=== PATIENT | female | born 1980 | race Caucasian/White ===

== ENCOUNTER → 2023-11-05 12:26 | Outpatient (REF) | payer OTHER, SELFPAY | LOC: WDC 12:26 | PROVIDERS: ATTENDING PHYSICIAN Family Medicine | DX: Z12.31 Encounter for screening mammogram for malignant neoplasm of breast (principal) | CPT/HCPCS: 77063; 77067 ==

== ENCOUNTER 2024-01-25 00:02 | Emergency (ER) | payer OTHER, SELFPAY ==
[2024-01-25 00:06] VITALS: BP 124/70
[2024-01-25 01:07] VITALS: BMI 31.5
[2024-01-25 01:42] LABS: % Basophils 0.3 % (0-2); % Eosinophils 0.1 % (0-6); % Immature Granulocytes 0.1 % (0-0.5); % Lymphocytes 18.7 % (20.5-51.1); % Monocytes 8.8 % (1.7-9.3); Absolute Lymphocytes 1.7 10^3/uL (1.2-3.4); Absolute Monocytes 0.8 10^3/uL (0.1-0.6); Absolute Neutrophils 6.7 10^3/uL (1.4-6.5); Hematocrit 31.2 % (37.0-47.0); Hemoglobin 10.2 g/dL (12.0-16.0); Mean Corp Hgb Conc. 32.7 g/dL (33.0-37.0); Mean Corpuscular Hgb 25.7 pg (27.0-31.0); Mean Corpuscular Volume 78.6 fL (81.0-99.0); Nucleated Red Blood Cells % 0 %; Platelet Count 283 10^3/uL (130-400); Red Blood Cell Count 3.97 10^6/uL (4.20-5.40); Red Cell Dist. Width 15.2 % (11.5-14.5); White Blood Cell Count 9.3 10^3/uL (4.8-10.8)
[2024-01-25 01:54] LABS: HCG, Serum Qualitative Screen Negative
[2024-01-25 01:55] LABS: Lactic Acid 1.6 mmol/L (0.7-2.0)
[2024-01-25 01:58] LABS: ALT (SGPT) 18 U/L (0-35); AST (SGOT) 37 U/L (14-36); Albumin 4.1 g/dl (3.5-5.0); Alkaline Phosphatase 47 U/L (38-126); Blood Urea Nitrogen 14 mg/dl (7-17); Carbon Dioxide 25 mmol/L (22-30); Chloride 104 mmol/L (98-107); Estimated Creatinine Clearance > 125 ml/min; Glucose 117 mg/dl (70-99); Lipase 182 U/L (23-300); Sodium 137 mmol/L (135-145); Total Bilirubin 0.8 mg/dl (0.2-1.3); Total Protein 6.9 g/dl (6.3-8.2); eGFR > 60.00
[2024-01-25] MEDS: OMNIPAQUE 50 ML PO (02:03)
--- NOTE | 2024-01-25 03:25 | ED.GENMED ---
History of Present Illness
General
Chief Complaint: Abdominal Pain
Source: patient
Time Seen by Provider: 01/25/24 03:11
Travel History
Have you had any contact with someone who has COVID-19?: No
Do you have any symptoms of coronavirus? Fever > 100 degrees, chills, cough, shortness of breath, sore throat, loss of taste or smell, muscle aches, or headache?: No
History of Present Illness
History of Present Illness:
43-year-old female presents to the emergency department after signing out AGAINST MEDICAL ADVICE at [facility] in [place]. She states that she showed up there today around 3 PM with severe abdominal pain. She reports eating a large [place]
meal. She stated that she had mid abdominal pain shortly after eating. She went to [facility] and had a full workup including CAT scan. She was told that she had a small bowel obstruction and possible twisting of her bowel. They attempted
to put an NG tube in but patient stated that she refused it. She decided she wanted a second opinion at [facility] so she got into her car and drove here. Upon arrival she stated that her symptoms had resolved. Patient has a history of
gastric bypass which was done in 2005 at [facility]. Patient states that she has had similar symptoms in the past with no obvious diagnosis found.
Past History
Past History
ED Past Medical History: GERD, Hypercholesterolemia and Other (Known history of cholelithiasis, PCOS, hypoglycemia)
ED Past Surgical History: Gynecological (Uterine Polypectomy) and Other (Gastric bypass surgery)
Social History
Tobacco: Non-smoker
Alcohol: None
Drug: None
Personal:
Living: with family
Employment: Employed
Family History
Family History: Negative Diabetes, Hypertension, Early CAD, Asthma or Cancer
Review of Systems
Review of Systems
Allergies reviewed?: Yes
All Other Systems: ROS reviewed and negative except as documented in HPI and ROS
Constitutional: Reports no symptoms
EENT: Reports no symptoms
Respiratory: Reports no symptoms
Cardiac: Reports no symptoms
ABD/GI: Reports abdominal pain and nausea
: Reports no symptoms
Musculoskeletal: Reports no symptoms
Skin: Reports no symptoms
Neurological: Reports no symptoms
Endocrine: Reports no symptoms
Hematologic/Lymphatic: Reports no symptoms
Psychiatric: Reports anxiety
Phy Exam
General Physical Exam
General Presentation: well appearing and no apparent distress
General Skin: warm and dry
General Habitus: normal
General Mental: alert
General Hydration: appears well hydrated
ENT Exam
ENT Exam: EOMI, pharynx normal, neck supple and normocephalic
Eye Exam
Eye Exam: PERRL, cornea clear and conjunctiva normal
Cardiovascular Exam
Cardiovascular Exam: regular rate/rhythm, no edema, no murmur and normal peripheral pulses
Pulmonary Exam
Pulmonary Exam: lungs clear, no respiratory distress, no rales, no crackles, no rhonchi, no stridor, no wheezing and no cough
Gastrointestinal Exam
Gastrointestinal Exam: normal bowel sounds, non tender, soft, no organomegaly, no pulsatile mass and non distended
Palpation: generalized: No tenderness
Neurological Exam
Neurological Exam: alert, oriented x3, no motor deficits and speech normal
Musculoskeletal Exam
Musculoskeletal Exam: full ROM and no edema
Skin Exam
Skin Exam: normal color, warm/dry, no rash and no petechia
Psychiatric Exam
Psychiatric Exam: normal mood/affect
Course
Orders/Labs/Results
Orders:
Orders
01/25/24 01:04
IV Insert/Care/Rem.- Treatment PRN
01/25/24 01:08
Test Result ONCE
01/25/24 01:33
Complete Blood Count/With Diff Urgent
Comprehensive Metabolic Panel Urgent
HCG, Serum Qualitative Screen Urgent
Lactate Level [Lactic Acid] Urgent
Lipase Urgent
01/25/24 01:37
CT Abd/pel W Iv And Oral Contr Urgent
Comment:
Reason For Exam: probable bowel obstruction (dxfrom OSH)
Iohexol [Omnipaque] See Protocol PO NOW STA
Abnormal Lab Results
01/25/24
01:33
RBC 3.97 L 10^6/uL
(4.20-5.40)
Hgb 10.2 L g/dL
(12.0-16.0)
Hct 31.2 L %
(37.0-47.0)
MCV 78.6 L fL
(81.0-99.0)
MCH 25.7 L pg
(27.0-31.0)
MCHC 32.7 L g/dL
(33.0-37.0)
RDW 15.2 H %
(11.5-14.5)
Absolute Neuts (auto) 6.7 H 10^3/uL
(1.4-6.5)
Absolute Monos (auto) 0.8 H 10^3/uL
(0.1-0.6)
Lymphocytes % 18.7 L %
(20.5-51.1)
Glucose 117 H mg/dl
(70-99)
AST 37 H U/L
(14-36)
01/25/24 01:33
01/25/24 01:33
Vital Signs
Initial and Last Documented VS:
Initial Vital Signs
Temp Pulse Resp BP Pulse Ox
98.4 F 60 24 124/70 96
01/25/24 00:06 01/25/24 00:06 01/25/24 00:06 01/25/24 00:06 01/25/24 00:06
Last Documented Vital Signs
Temp Pulse Resp BP Pulse Ox
98.4 F 62 18 98/46 98
01/25/24 00:06 01/25/24 05:22 01/25/24 05:22 01/25/24 05:22 01/25/24 05:22
*Critical Care Note
Total Time (30-74mins, 75-104mins- exclusive of procedures): Not Applicable
Update Note
Update Note:
IMPRESSION:
Small bowel obstruction has resolved; oral contrast extends to the descending colon.
Prior gastric bypass
No abscess or free gas
No diverticulitis or appendicitis
No bulky adnexal lesions
Small sludge, stones or contrast in the gallbladder; no cholecystitis or duct dilatation
Normal-appearing pancreas
No obstructive uropathy
Indeterminate 2.7 cm lesion in the right hepatic lobe (). Stable dating back to 11/02/2022. If not previously assessed consider nonemergent follow-up liver protocol MRI.
Partially imaged groundglass micronodule in the right lung base measuring 5 mm.
01/25/2024 0527 AM: Patient given a copy of her preliminary CT scan report. She is in no pain. She has no complaints. On repeat physical exam she has no pain to deep or superficial palpation. Good bowel sounds are heard. Patient to be discharged
home. She is in no acute distress at this time.
ED Attending Note
-
Portions of this chart may have been created with voice recognition software.� Occasional wrong word or��sound alike� substitutions may have occurred due to the inherent limitations of voice recognition software.
Discharge Plan
Departure
Patient Disposition: Home (Routine Discharge)
Date of Disposition: 01/25/24
Time of Disposition: :
Patient with high blood pressure during this ER visit?: Yes
Condition: Good
Discharge Problem:
Small bowel obstruction resolved
Instructions: Small Bowel Obstruction (DC), Abdominal Pain, BLOOD PRESSURE
Prescriptions:
No Action
ondansetron HCl 4 mg tablet
4 mg PO DAILY PRN (Reason: nausea and vomiting) 4 Days Qty: 7 0RF
Referrals:
Raúl Gomez, [Family Provider] -
Raul Ballesteros MD [Active] - As needed
Activity Restrictions/Additional Instructions:
It was a pleasure meeting you and taking part in your care. We hope for your continued healing and wellness.
Please read discharge instructions in their entirety. However, they are for general education and may not describe your exact diagnosis at discharge. Information on your ER visit and medical conditions were discussed with you along with appropriate
follow up information...
If indicated, please take your medications as instructed and indicated on discharge paperwork.
Please schedule a follow up appointment as directed. Call to schedule an appointment
Please return to the emergency department with ANY change in, persisting, or worsening of symptoms. If any of your symptoms do not improve, or persist, or become more severe within 6-12 hours, please return to the emergency department for further
care.
Please return to the emergency department if you develop a headache, neck pain/stiffness, fever greater than 100.4F, chest pain, shortness of breath, persistent nausea, vomiting, slurred speech, difficulty walking, numbness/tingling, weakness, signs
of infection or any other symptoms that are worrisome to you.
If you have any questions or concerns please do not hesitate to call the Hospital at or E-mail me directly at [email or web address]
Interventions
Interventions:
*Risk Screen - Suicide Last Done: 01/25/24 00:06
*General Assessment Last Done: 01/25/24 02:15
*Neglect/Abuse Screening Last Done: 01/25/24 00:06
ED- Fall Risk Assessment Last Done: 01/25/24 05:40
*ED COVID-19 Vaccine History Last Done: 01/25/24 02:16
*Nursing Disposition Last Done: 01/25/24 05:40
[facility]-Ybtqhyx[facility] Assessment Last Done: 01/25/24 02:16
Discharge Date and Time
Discharge Date/Time: 01/25/24 06:01
Print Language: SETSWANA
[2024-01-25 05:22] VITALS: BP 98/46
== END 2024-01-25 06:01 | disposition home or self-care (01) ==
LOC: EMR 00:02
PROVIDERS: EMERGENCY PHYSICIAN Student in an Organized Health Care Education/Training Program; FAMILY PHYSICIAN Family Medicine
DX: K56.609 Unspecified intestinal obstruction, unspecified as to partial versus complete obstruction (principal); R11.0 Nausea; R03.0 Elevated blood-pressure reading, without diagnosis of hypertension; K21.9 Gastro-esophageal reflux disease without esophagitis; E78.00 Pure hypercholesterolemia, unspecified; Z98.84 Bariatric surgery status; Z88.0 Allergy status to penicillin; Z91.048 Other nonmedicinal substance allergy status
CPT/HCPCS: 99285; 74177; 80053; 83605; 83690; 84703; 85025; Q9967

== ENCOUNTER → 2024-06-13 09:31 | Outpatient (REF) | payer OTHER, SELFPAY | LOC: RAD 09:31 | PROVIDERS: ATTENDING PHYSICIAN Obstetrics & Gynecology Gynecology; FAMILY PHYSICIAN Family Medicine | DX: R10.2 Pelvic and perineal pain (principal) | CPT/HCPCS: 76830; 76856 ==

== ENCOUNTER 2024-10-30 18:29 | Emergency (ER) | payer OTHER, SELFPAY ==
[2024-10-30 18:40] VITALS: BP 108/73
--- NOTE | 2024-10-30 20:55 | ED.GENMED ---
History of Present Illness
General
Chief Complaint: Fall
Source: patient
Exam Limitations: none
Time Seen by Provider: 10/30/24 19:37
Nursing documentation reviewed up to this point in time: agreed with
History of Present Illness
History of Present Illness:
Patient states she was working on steps and fell. Fell down 3 steps. No LOC> Has tiny laceration to llateral aspect of right eyebow. Injury occured just [employer] DIRECT[employer]> Brought to ED by spouse for eval.
Past History
Past History
ED Past Medical History: GERD, Hypercholesterolemia and Other (Known history of cholelithiasis, PCOS, hypoglycemia)
ED Past Surgical History: Gynecological (Uterine Polypectomy) and Other (Gastric bypass surgery)
Social History
Tobacco: Non-smoker
Alcohol: None
Drug: None
Personal:
Living: with family
Employment: Employed
Family History
Family History: Negative Diabetes, Hypertension, Early CAD, Asthma or Cancer
Review of Systems
Review of Systems
Allergies reviewed?: Yes
All Other Systems: ROS reviewed and negative except as documented in HPI and ROS
Constitutional: Reports no symptoms
EENT: Reports no symptoms
Respiratory: Reports no symptoms
Cardiac: Reports no symptoms
ABD/GI: Reports no symptoms
: Reports no symptoms
Musculoskeletal: Reports no symptoms
Skin: Reports other (tiny laceration to lateral aspect of right eyebrow.)
Neurological: Reports dizzy and headache
Psychiatric: Reports no symptoms
Phy Exam
General Physical Exam
General Presentation: well appearing and no apparent distress
General age: appears stated age
General Skin: warm and dry
General Habitus: normal
Eye Exam
Eye Exam: PERRL, EOMI, conjunctiva normal and globe normal
Neurological Exam
Neurological Exam: alert, oriented x3, CN II-XII intact, no motor deficits, no sensory deficits, speech normal and normal gait
Victor[place] Coma Scale
Eye Opening: Spontaneous
Verbal Response: Oriented
Motor Response: Obeys Commands
GCS Total Score: 15
Musculoskeletal Exam
Musculoskeletal Exam: full ROM and neuro vasc intact
Skin Exam
Skin Exam: normal color, warm/dry and no rash
Psychiatric Exam
Psychiatric Exam: normal mood/affect
Course
Orders/Labs/Results
Orders:
Orders
10/30/24 18:35
CT Head W/o Iv Contrast Urgent
Comment:
Reason For Exam: fall with head strike
Vital Signs
Initial and Last Documented VS:
Initial Vital Signs
Temp Pulse Resp BP Pulse Ox
98.6 F 86 16 108/73 97
10/30/24 18:40 10/30/24 18:40 10/30/24 18:40 10/30/24 18:40 10/30/24 18:40
Last Documented Vital Signs
Temp Pulse Resp BP Pulse Ox
98.6 F 86 16 108/73 97
10/30/24 18:40 10/30/24 18:40 10/30/24 18:40 10/30/24 18:40 10/30/24 18:40
*Radiology
Radiology exam reviewed: radiology read reviewed
*Pulse Oximetry
Patient hypoxic: no
*Critical Care Note
Total Time (30-74mins, 75-104mins- exclusive of procedures): Not Applicable
Update Note
Update Note:
Patient declined closure of right eyebrow wound. Risk/benefits of laceration repair vs secondary intention. Given instructions on s/s infection, daily wound care, s/s to return to ED and she is agreeable to plan
ED Attending Note
-
Portions of this chart may have been created with voice recognition software.� Occasional wrong word or��sound alike� substitutions may have occurred due to the inherent limitations of voice recognition software.
Discharge Plan
Departure
Patient Disposition: Home (Routine Discharge)
Date of Disposition: 10/30/24
Time of Disposition: 20:54
Patient with high blood pressure during this ER visit?: No
Condition: Good
Covid-19: Not Applicable
Discharge Problem:
Head injury
Instructions: Concussion, Adult (DC), Head Injury in Adults (DC), Contusion (DC)
Prescriptions:
No Action
ondansetron HCl 4 mg tablet
4 mg PO DAILY PRN (Reason: nausea and vomiting) 4 Days Qty: 7 0RF
Referrals:
Filiberto David MD [Family Provider] - Follow up in 2-3 days
Interventions
Interventions:
*Risk Screen - Suicide Last Done: 10/30/24 18:40
*General Assessment Last Done: 10/30/24 18:40
*Neglect/Abuse Screening Last Done: 10/30/24 18:40
*ED COVID-19 Vaccine History Last Done: 10/30/24 18:40
*Nursing Disposition Last Done: 10/30/24 20:56
ED- Neurological Assessment Last Done: 10/30/24 20:53
ED-Skin Assessment Last Done: 10/30/24 20:53
Discharge Date and Time
Discharge Date/Time: 10/30/24 20:57
Print Language: ETHIOPIAN
Skin Exam
Laceration
Right Eye brow:
Length in cm: 0.5
Orientation: vertical
Type of Laceration: simple
Any active bleeding?: no active bleeding
Distal skin color and temperature: normal-warm & good color
Normal distal neurovascular exam: Yes
Range of motion: full
== END 2024-10-30 20:57 | disposition home or self-care (01) ==
LOC: EMR 18:29
PROVIDERS: EMERGENCY PHYSICIAN Emergency Medicine; FAMILY PHYSICIAN Obstetrics & Gynecology Female Pelvic Medicine and Reconstructive Surgery
DX: S09.90XA Unspecified injury of head, initial encounter (principal); S01.111A Laceration without foreign body of right eyelid and periocular area, initial encounter; R42 Dizziness and giddiness; R51.9 Headache, unspecified; W10.9XXA Fall (on) (from) unspecified stairs and steps, initial encounter; E78.00 Pure hypercholesterolemia, unspecified; K21.9 Gastro-esophageal reflux disease without esophagitis; E28.2 Polycystic ovarian syndrome; Z98.84 Bariatric surgery status; Z88.0 Allergy status to penicillin; Z91.048 Other nonmedicinal substance allergy status
CPT/HCPCS: 99284; 70450